=== PATIENT | female | born 1980 | race Caucasian/White ===

== ENCOUNTER 2017-09-20 17:42 | Outpatient (CLI) | END 2017-09-20 21:17 | disposition home or self-care (01) ==

== ENCOUNTER 2017-09-20 21:24 | Emergency (ER) | END 2017-09-21 02:15 | disposition home or self-care (01) ==

== ENCOUNTER 2017-10-24 12:20 | Inpatient (IN) | END 2017-10-28 18:20 | disposition home or self-care (01) | DRG 766 ==